=== PATIENT | male | born 1970 | race Caucasian/White ===

== ENCOUNTER 2025-01-23 12:31 | Emergency (ER) | payer OTHER ==
[~2025-01-23] VITALS: Ht 195.5 cm; Wt 77.1 kg
[2025-01-23] MEDS ORDERED: Albuterol Sulf/Ipratropium 3 ML VIAL NEB ONE (13:10)
[2025-01-23 13:32] LABS: BASO # 0.1 10*3/uL (0.0-0.1); BASO % 0.9 % (0.0-1.0); EOS # 0.1 10*3/uL (0.0-0.4); EOS % 2.0 % (1.0-4.0); MEAN CELL VOLUME 94.3 fl (80.0-94.0); MEAN CORPUSCULAR HGB 32.9 pg (27.0-31.0); MEAN PLATELET VOLUME 10.3 fl (9.6-12.3); MONO # 0.8 10*3/uL (0.1-1.0); MONO % 11.3 % (3.0-9.0); NEUT # 4.7 10*3/uL (2.3-7.9); NEUT % 68.2 % (47.0-73.0); NUCLEATED RED BLOOD CELL 0.0 % (0.0-0.0); NUCLEATED RED BLOOD CELL 0.0 10*3/uL (0.0-0.0); PLATELET COUNT AUTOMATED 160 10*3/uL (130-400); RED CELL DISTRI WIDTH 15.8 % (0-14.5)
[2025-01-23 13:51] LABS: BUN 11 mg/dl (9-23)
[2025-01-23] MEDS ORDERED: PREDNISONE20 M1 PO (14:42)
== END 2025-01-23 14:47 | disposition home or self-care (01) ==
LOC: ED 12:31
PROVIDERS: Emergency Medicine
DX: J44.1 Chronic obstructive pulmonary disease with (acute) exacerbation (principal); J44.9 Chronic obstructive pulmonary disease, unspecified; F17.210 Nicotine dependence, cigarettes, uncomplicated; Z88.0 Allergy status to penicillin